=== PATIENT | female | born 2000 | race Hispanic/Latino ===

== ENCOUNTER 2021-09-15 16:44 | Emergency (ER) | payer MEDICAID, OTHER ==
[~2021-09-15] VITALS: Ht 162.6 cm; Wt 102.1 kg
[2021-09-15] MEDS ORDERED: KETOROLAC 60 MG VIAL (30MG/ML) IM ONE (17:30)
[2021-09-15] MEDS ORDERED: KETOROLAC 60 MG VIAL (30MG/ML) ONE (17:31)
[2021-09-15] MEDS ORDERED: IBUP-2070 PO (18:28)
[2021-09-15 19:02] VITALS: BP 124/68
== END 2021-09-15 19:15 | disposition home or self-care (01) ==
LOC: EDH 16:44
DX: S89.92XA Unspecified injury of left lower leg, initial encounter (principal); Z79.1 Long term (current) use of non-steroidal anti-inflammatories (NSAID); X50.1XXA Overexertion from prolonged static or awkward postures, initial encounter; Y93.89 Activity, other specified; Y92.89 Other specified places as the place of occurrence of the external cause; Y99.8 Other external cause status
CPT/HCPCS: 29505; 73562; 96372; 99283; J1885